=== PATIENT | female | born 1945 | race Caucasian/White ===

== ENCOUNTER → 2019-12-28 | Outpatient (CLI) | payer MEDICARE ==
[~2019-12-28] MED LIST: ASPI81CH PO; FAMO20 PO; Ferrous Sulfat325 M2 PO; GABA400 PO; HYDCHL12.5 PO; LEVSOD125 PO; LISI20 PO
[2019-12-28 20:46] LABS: Protein, Urine Quantitative <5.0 mg/dL (0.0-11.9)
== END | disposition home or self-care (01) ==
LOC: LAB 13:43 → LAB SHORT 13:43
PROVIDERS: Internal Medicine Nephrology
DX: N18.3 Chronic kidney disease, stage 3 (moderate) (principal); D63.1 Anemia in chronic kidney disease; N25.81 Secondary hyperparathyroidism of renal origin; E55.9 Vitamin D deficiency, unspecified; E78.00 Pure hypercholesterolemia, unspecified; D51.8 Other vitamin B12 deficiency anemias; D52.8 Other folate deficiency anemias; D50.9 Iron deficiency anemia, unspecified; R76.9 Abnormal immunological finding in serum, unspecified; R94.5 Abnormal results of liver function studies; R94.6 Abnormal results of thyroid function studies
CPT/HCPCS: 81050; 82043; 82570; 84156

== ENCOUNTER 2022-04-26 12:50 | Observation (INO) | payer MEDICARE ==
[~2022-04-26] VITALS: Ht 157.5 cm; Wt 64.0 kg
[~2022-04-26 12:50] MED LIST changes: +LEVSOD100 PO; -LEVSOD125 PO
[2022-04-26 15:27] LABS: BASOPHILS ABSOLUTE AUTO 0.02 K/mm3 (0.00-0.23); BASOPHILS PERCENT AUTO 1 % (0-2); EOSINOPHILS PERCENT AUTO 0 % (0-6); Hematocrit 29.2 % (33.0-51.0); Hemoglobin 9.3 g/dL (11.5-16.0); IMMATURE GRAN ABSOLUTE AUTO 0.02 K/mm3 (0.00-0.10); IMMATURE GRAN PERCENT AUTO 1 % (0-1); LYMPHOCYTES ABSOLUTE AUTO 0.89 K/mm3 (0.84-5.20); LYMPHOCYTES PERCENT AUTO 21 % (21-46); MONOCYTES ABSOLUTE AUTO 0.55 K/mm3 (0.16-1.47); MONOCYTES PERCENT AUTO 13 % (4-13); Mean Corpuscular HGB 31.3 pg (26.0-34.0); Mean Corpuscular HGB Conc 31.8 g/dL (31.5-36.5); Mean Corpuscular Volume 98 fL (80-100); Mean Platelet Volume 10.6 fL (9.1-12.4); NEUTROPHILS ABSOLUTE AUTO 2.86 K/mm3 (1.96-9.15); NEUTROPHILS PERCENT AUTO 66 % (41-73); Platelet Count 257 K/mm3 (150-400); RDW Coefficient Variation 15.2 % (11.7-14.2); RDW Standard Deviation 54.6 fL (35.1-46.3); Red Blood Cell Count 2.97 M/mm3 (3.80-5.20); White Blood Cell Count 4.34 K/mm3 (4.00-11.30)
[2022-04-26 16:02] LABS: Albumin, Blood 3.6 g/dL (3.4-5.0); Albumin/Globulin Ratio 1.1 (0.8-1.8); Bilirubin, Total 0.2 mg/dL (0.1-1.0); Bun/Creatinine Ratio 15.6 (12.0-20.0); Calcium, Blood 9.1 mg/dL (8.5-10.1); Creatinine, Blood 1.09 mg/dL (0.40-1.00); Globulin, Blood 3.3 g/dL (2.2-4.0); Potassium, Blood 4.5 mmol/L (3.5-5.5); Total Protein, Blood 6.9 g/dL (6.4-8.2)
[2022-04-27 04:37] LABS: BASOPHILS ABSOLUTE AUTO 0.01 K/mm3 (0.00-0.23); BASOPHILS PERCENT AUTO 0 % (0-2); EOSINOPHILS PERCENT AUTO 0 % (0-6); Hematocrit 28.8 % (33.0-51.0); Hemoglobin 9.3 g/dL (11.5-16.0); IMMATURE GRAN ABSOLUTE AUTO 0.02 K/mm3 (0.00-0.10); IMMATURE GRAN PERCENT AUTO 1 % (0-1); LYMPHOCYTES ABSOLUTE AUTO 0.99 K/mm3 (0.84-5.20); LYMPHOCYTES PERCENT AUTO 25 % (21-46); MONOCYTES ABSOLUTE AUTO 0.44 K/mm3 (0.16-1.47); MONOCYTES PERCENT AUTO 11 % (4-13); Mean Corpuscular HGB Conc 32.3 g/dL (31.5-36.5); Mean Corpuscular Volume 96 fL (80-100); Mean Platelet Volume 10.2 fL (9.1-12.4); NEUTROPHILS ABSOLUTE AUTO 2.45 K/mm3 (1.96-9.15); NEUTROPHILS PERCENT AUTO 63 % (41-73); Platelet Count 243 K/mm3 (150-400); RDW Coefficient Variation 15.1 % (11.7-14.2); RDW Standard Deviation 52.6 fL (35.1-46.3); White Blood Cell Count 3.91 K/mm3 (4.00-11.30)
[2022-04-27 04:55] LABS: Bun/Creatinine Ratio 15.2 (12.0-20.0); Calcium, Blood 8.7 mg/dL (8.5-10.1); Creatinine, Blood 1.05 mg/dL (0.40-1.00); Potassium, Blood 4.1 mmol/L (3.5-5.5)
--- NOTE | 2022-04-27 07:48 | NUR ---
NUCLEAR PHYSICIAN SUMMARY NEW ADMIT FROM THE ED. PT ADMITTED FOR CP. REPORTS SOME OFF/ON CP THAT HAS BEEN THE SAME FOR THE LAST 5-6 DAYS, REPORTS PAIN A DULL ACHE. DENIES SHARP CP THAT RADIATES. NSR ON TELE. PT HAS BEEN NPO SINCE MIDNIGHT IN PREP FOR STRESS TEST LATER TODAY. VSS, WILL CONTINUE TO MONITOR.
[2022-04-27] MEDS ORDERED: Amlodipine Bes2.5 MG PO (15:24)
--- NOTE | 2022-04-27 17:35 | NUR ---
DISCHARGE SUMMARY DISCUSSED DISCHARGE INSTRUCTIONS WITH THE PT INCLUDING HOME MEDICATION CHANGES, FOLLOW UP REFERRAL WITH ONCOLOGY, FOLLOW UP WITH PRIMARY CARE. CONTACT INFORMATION GIVEN FOR ONCOLOGY REFERRAL. PT HAD NO QUESTIONS AT TIME OF DISCHARGE. IV ACCESS REMOVED. REFUSED WC RIDE OUT TO HER PRIVATE AUTO TO GO HOME.
== END 2022-04-27 17:59 | disposition home or self-care (01) ==
LOC: ER 12:50 → ERHOLD 12:51 → SURS 20:24
PROVIDERS: Emergency Medicine; ADMIT Internal Medicine
DX: R07.89 Other chest pain (principal); R91.8 Other nonspecific abnormal finding of lung field; I10 Essential (primary) hypertension; E03.9 Hypothyroidism, unspecified; E78.5 Hyperlipidemia, unspecified; D50.9 Iron deficiency anemia, unspecified; Z88.2 Allergy status to sulfonamides; Z88.8 Allergy status to other drugs, medicaments and biological substances; Z79.890 Hormone replacement therapy; Z79.82 Long term (current) use of aspirin; Z79.899 Other long term (current) drug therapy; Z87.891 Personal history of nicotine dependence; R79.89 Other specified abnormal findings of blood chemistry
CPT/HCPCS: 36415; 71046; 71260; 78452; 80048; 80053; 84484; 85025; 93005; 93010; 93017; 99285-25; A9270; A9500; G0378; J0280; J2785; Q9967

== ENCOUNTER → 2023-01-24 | Outpatient (CLI) | payer MEDICARE ==
[~2023-01-24] MED LIST changes: +Amlodipine Bes2.5 MG PO
[2023-01-25 05:53] LABS: Campylobacter Sp Not Detected (NOT DETECT)
[2023-01-25 05:54] LABS: Adenovirus F 40/41 Not Detected (NOT DETECT); Astrovirus Not Detected (NOT DETECT); Cryptosporidium Not Detected (NOT DETECT); Cyclospora Cayetanensis Not Detected (NOT DETECT); E. Coli O157 Not Detected (NOT DETECT); Entamoeba Histolytica Not Detected (NOT DETECT); Enteroaggregative E. coli-EAEC Not Detected (NOT DETECT); Enteropathogenic E. coli-EPEC Not Detected (NOT DETECT); Enterotoxigenic E. coli-ETEC Not Detected (NOT DETECT); Giardia Lamblia Not Detected (NOT DETECT); Norovirus GI/GII Not Detected (NOT DETECT); Plesiomonas Shigelloides Not Detected (NOT DETECT); Rotavirus A Not Detected (NOT DETECT); Salmonella Sp Not Detected (NOT DETECT); Sapovirus Not Detected (NOT DETECT); Shiga Toxin-prod E. coli-STEC Not Detected (NOT DETECT); Shigella/Enteroin E. coli-EIEC Not Detected (NOT DETECT); Vibrio Cholerae Not Detected (NOT DETECT); Vibrio Sp Not Detected (NOT DETECT); Yersinia Enterocolitica Not Detected (NOT DETECT)
== END | disposition home or self-care (01) ==
LOC: LAB SHORT 09:30 → LAB 09:30
PROVIDERS: Family Medicine
DX: K52.9 Noninfective gastroenteritis and colitis, unspecified (principal)
CPT/HCPCS: 87324; 87507

== ENCOUNTER → 2023-01-26 | Outpatient (CLI) | payer MEDICARE ==
[2023-01-26 15:21] LABS: Hematocrit 26.4 % (33.0-51.0); Hemoglobin 8.2 g/dL (11.5-16.0); Mean Corpuscular HGB 29.9 pg (26.0-34.0); Mean Corpuscular HGB Conc 31.1 g/dL (31.5-36.5); Mean Corpuscular Volume 96 fL (80-100); Mean Platelet Volume 10.8 fL (9.1-12.4); Platelet Count 314 K/mm3 (150-400); Red Blood Cell Count 2.74 M/mm3 (3.80-5.20); White Blood Cell Count 3.68 K/mm3 (4.00-11.30)
[2023-01-26 15:33] LABS: Albumin, Blood 3.2 g/dL (3.4-5.0); Albumin/Globulin Ratio 0.8 (0.8-1.8); Bilirubin, Total 0.2 mg/dL (0.1-1.0); Bun/Creatinine Ratio 13.1 (12.0-20.0); Calcium, Blood 8.8 mg/dL (8.5-10.1); Creatinine, Blood 0.92 mg/dL (0.40-1.00); Potassium, Blood 3.8 mmol/L (3.5-5.5); Total Protein, Blood 7.2 g/dL (6.4-8.2)
[2023-01-26 15:41] LABS: BASOPHILS PERCENT MAN 0 % (0-2); EOSINOPHILS PERCENT MAN 0 % (0-6); LYMPHOCYTES % ATYPICAL MANUAL 4 % (0-0); LYMPHOCYTES ABSOLUTE MAN 1.14 K/mm3 (0.84-5.20); LYMPHOCYTES PERCENT MAN 27 % (21-46); MONOCYTES ABSOLUTE MAN 0.14 K/mm3 (0.16-1.47); MONOCYTES PERCENT MAN 4 % (4-13); NEUTROPHILS ABSOLUTE MAN 2.39 K/mm3 (1.96-9.15); SEG NEUTROPHILS PERCENT MAN 65 % (41-73); TOTAL CELLS COUNTED 100
== END | disposition home or self-care (01) ==
LOC: LAB 13:47 → LAB SHORT 13:47
PROVIDERS: Physician Assistant
DX: R53.83 Other fatigue (principal)
CPT/HCPCS: 80053; 85025

== ENCOUNTER → 2023-08-19 | Outpatient (CLI) | payer OTHER ==
[~2023-08-19] MED LIST changes: +AMLODIPINE BES2.5 MG PO; +EUTHYROX100 MC1 PO; +NEURONTIN40010 PO
[2023-08-19 17:36] LABS: BASOPHILS ABSOLUTE AUTO 0.03 K/mm3 (0.00-0.23); BASOPHILS PERCENT AUTO 1 % (0-2); EOSINOPHILS PERCENT AUTO 0 % (0-6); Hemoglobin 8.1 g/dL (11.5-16.0); IMMATURE GRAN ABSOLUTE AUTO 0.03 K/mm3 (0.00-0.10); IMMATURE GRAN PERCENT AUTO 1 % (0-1); LYMPHOCYTES ABSOLUTE AUTO 0.52 K/mm3 (0.84-5.20); LYMPHOCYTES PERCENT AUTO 9 % (21-46); MONOCYTES ABSOLUTE AUTO 0.63 K/mm3 (0.16-1.47); MONOCYTES PERCENT AUTO 11 % (4-13); Mean Corpuscular Volume 100 fL (80-100); Mean Platelet Volume 11.4 fL (9.1-12.4); NEUTROPHILS PERCENT AUTO 78 % (41-73); Platelet Count 258 K/mm3 (150-400); RDW Coefficient Variation 15.4 % (11.7-14.2); RDW Standard Deviation 54.8 fL (35.1-46.3); White Blood Cell Count 5.51 K/mm3 (4.00-11.30)
[2023-08-19 17:49] LABS: Bun/Creatinine Ratio 23.7 (12.0-20.0); Calcium, Blood 9.2 mg/dL (8.5-10.1); Creatinine, Blood 0.97 mg/dL (0.40-1.00); Potassium, Blood 4.3 mmol/L (3.5-5.5)
== END | disposition home or self-care (01) ==
LOC: LAB SHORT 13:48 → LAB 13:48
PROVIDERS: Family Medicine
DX: D64.9 Anemia, unspecified (principal); R07.89 Other chest pain
CPT/HCPCS: 80048; 84484; 85025

== ENCOUNTER 2023-08-25 13:02 | Emergency (ER) | payer OTHER ==
[~2023-08-25] VITALS: Ht 152.4 cm; Wt 65.8 kg
[~2023-08-25 13:02] MED LIST changes: -AMLODIPINE BES2.5 MG PO; -EUTHYROX100 MC1 PO; -NEURONTIN40010 PO
[2023-08-25] MEDS ORDERED: Ondansetron HCl 2 MG / ML 2ML Vial IV ONE ×2 (14:30→15:35)
[2023-08-25] MEDS ORDERED: Morphine Sulfate 4 MG/1 ML Injection IV ONE (14:30)
[2023-08-25] MEDS ORDERED: AMLODIPINE BES2.5 MG PO (14:46)
[2023-08-25] MEDS ORDERED: NEURONTIN40010 PO (14:46)
[2023-08-25] MEDS ORDERED: EUTHYROX100 MC1 PO (14:46)
[2023-08-25 15:26] LABS: BASOPHILS ABSOLUTE AUTO 0.02 K/mm3 (0.00-0.23); BASOPHILS PERCENT AUTO 0 % (0-2); EOSINOPHILS PERCENT AUTO 0 % (0-6); Hematocrit 28.3 % (33.0-51.0); Hemoglobin 8.4 g/dL (11.5-16.0); IMMATURE GRAN ABSOLUTE AUTO 0.03 K/mm3 (0.00-0.10); IMMATURE GRAN PERCENT AUTO 1 % (0-1); LYMPHOCYTES ABSOLUTE AUTO 0.79 K/mm3 (0.84-5.20); LYMPHOCYTES PERCENT AUTO 15 % (21-46); MONOCYTES ABSOLUTE AUTO 0.76 K/mm3 (0.16-1.47); MONOCYTES PERCENT AUTO 15 % (4-13); Mean Corpuscular HGB 29.9 pg (26.0-34.0); Mean Corpuscular HGB Conc 29.7 g/dL (31.5-36.5); Mean Corpuscular Volume 101 fL (80-100); Mean Platelet Volume 10.6 fL (9.1-12.4); NEUTROPHILS ABSOLUTE AUTO 3.63 K/mm3 (1.96-9.15); NEUTROPHILS PERCENT AUTO 69 % (41-73); Platelet Count 293 K/mm3 (150-400); RDW Coefficient Variation 14.6 % (11.7-14.2); Red Blood Cell Count 2.81 M/mm3 (3.80-5.20); White Blood Cell Count 5.23 K/mm3 (4.00-11.30)
[2023-08-25] MEDS ORDERED: HYDROmorphone HCl/Pf 1MG SYR IV ONE (15:30)
[2023-08-25 15:37] LABS: Albumin, Blood 3.3 g/dL (3.4-5.0); Albumin/Globulin Ratio 0.8 (0.8-1.8); Bilirubin, Total 0.3 mg/dL (0.1-1.0); Calcium, Blood 8.9 mg/dL (8.5-10.1); Globulin, Blood 4.1 g/dL (2.2-4.0); Potassium, Blood 4.5 mmol/L (3.5-5.5); Total Protein, Blood 7.4 g/dL (6.4-8.2)
[2023-08-25 18:51] VITALS: BP 155/55
== END 2023-08-25 18:52 | disposition home or self-care (01) ==
LOC: ER 13:02
PROVIDERS: Nurse Practitioner
DX: M54.2 Cervicalgia (principal); M25.512 Pain in left shoulder; Z88.2 Allergy status to sulfonamides; Z88.8 Allergy status to other drugs, medicaments and biological substances; Z79.899 Other long term (current) drug therapy; I10 Essential (primary) hypertension; E03.9 Hypothyroidism, unspecified; G47.00 Insomnia, unspecified; Z87.891 Personal history of nicotine dependence
CPT/HCPCS: 71046; 71260; 80053; 84484; 85025; 93005; 93010; 96374-59; 96375-59; 99284-25; J2270; J2405; Q9967

== ENCOUNTER 2023-10-13 12:27 | Inpatient (IN) | payer OTHER ==
[~2023-10-13] VITALS: Ht 154.9 cm; Wt 64.9 kg
[~2023-10-13 12:27] MED LIST changes: +AMLODIPINE BES2.5 MG PO; +EUTHYROX100 MC1 PO; +HYDROCODONE-AC1 EA19 PO; +KETOROLAC TROMET3 ML OP; +NEURONTIN40010 PO; +PEPCID40 MG PO
[2023-10-13 13:03] LABS: BASOPHILS ABSOLUTE AUTO 0.02 K/mm3 (0.00-0.23); BASOPHILS PERCENT AUTO 1 % (0-2); EOSINOPHILS ABSOLUTE AUTO 0.01 K/mm3 (0.00-0.68); EOSINOPHILS PERCENT AUTO 0 % (0-6); Hematocrit 27.7 % (33.0-51.0); Hemoglobin 8.1 g/dL (11.5-16.0); IMMATURE GRAN ABSOLUTE AUTO 0.02 K/mm3 (0.00-0.10); IMMATURE GRAN PERCENT AUTO 1 % (0-1); LYMPHOCYTES ABSOLUTE AUTO 0.57 K/mm3 (0.84-5.20); LYMPHOCYTES PERCENT AUTO 13 % (21-46); MONOCYTES ABSOLUTE AUTO 0.52 K/mm3 (0.16-1.47); MONOCYTES PERCENT AUTO 12 % (4-13); Mean Corpuscular HGB 27.5 pg (26.0-34.0); Mean Corpuscular HGB Conc 29.2 g/dL (31.5-36.5); Mean Corpuscular Volume 94 fL (80-100); Mean Platelet Volume 10.1 fL (9.1-12.4); NEUTROPHILS ABSOLUTE AUTO 3.23 K/mm3 (1.96-9.15); NEUTROPHILS PERCENT AUTO 74 % (41-73); Platelet Count 335 K/mm3 (150-400); RDW Coefficient Variation 14.7 % (11.7-14.2); Red Blood Cell Count 2.95 M/mm3 (3.80-5.20); White Blood Cell Count 4.37 K/mm3 (4.00-11.30)
[2023-10-13 13:32] LABS: Albumin, Blood 3.1 g/dL (3.4-5.0); Albumin/Globulin Ratio 0.7 (0.8-1.8); Bilirubin, Total 0.3 mg/dL (0.1-1.0); Bun/Creatinine Ratio 20.4 (12.0-20.0); Creatinine, Blood 0.74 mg/dL (0.40-1.00); Globulin, Blood 4.4 g/dL (2.2-4.0); Total Protein, Blood 7.5 g/dL (6.4-8.2)
[2023-10-13 14:38] LABS: Influenza A, PCR NEGATIVE (NEGATIVE); Influenza B, PCR NEGATIVE (NEGATIVE); Resp Syncytial Virus, PCR NEGATIVE (NEGATIVE); SARS-Cov-2 (COVID-19) PCR, MMC NEGATIVE (NEGATIVE)
[2023-10-13 15:51] LABS: International Normalized Ratio 1.1; Prothrombin Time Results 11.7 Sec (9.7-11.5)
[2023-10-13] MEDS ORDERED: Albuterol 2.5 MG/3 ML VIAL INH PRN (16:05)
[2023-10-13] MEDS ORDERED: Ondansetron HCl 2 MG / ML 2ML Vial IV PRN (16:05)
[2023-10-13] MEDS ORDERED: HYDROcodone 10-APAP 325 TAB PO PRN (16:05)
[2023-10-13] MEDS ORDERED: Ondansetron 4 MG TAB PO PRN (16:05)
[2023-10-13] MEDS ORDERED: Ketorolac Tromethamine 30mg Vial IV PRN (16:10)
[2023-10-13] MEDS ORDERED: FURO20 PO (17:26)
[2023-10-13] MEDS ORDERED: POTCHL20ER PO (17:26)
[2023-10-13] MEDS ORDERED: FEROSUL325 M1 PO (17:27)
[2023-10-13] MEDS ORDERED: FAMO40 PO (17:28)
[2023-10-13 18:03] VITALS: BP 178/70
--- NOTE | 2023-10-13 18:47 | NUR ---
ADMIT NOTE/SHIFT SUMMARY- PT ADMITTED THROUGH THE ED FOR SOB, PLURAL EFFUSION. PT HAS A SCHHEDULED THORACENTESIS. SHE STATES SHE HAS NEVER HAD A THORACENTESIS BEFORE. PT HAS A BENIGN TUMOR IN THE LEFT UPPER LOBE AND A LEFT PLURAL EFFUSION. LUNG SOUNDS ARE ABSENT ON THE LEFT. CLEAR ON THE RIGHT. PT IN BED, CALL LIGHT IN REACH, SPOUSE AT THE BEDSIDE. PT STATES "IF I HAVE CANCER I DON'T WANT TO KNOW." SHE SAYS MD PIZARRO.
[2023-10-13 19:39] VITALS: BP 169/55
[2023-10-13] MEDS ORDERED: Docusate Sodium 100 MG Cap PO SCH (21:00)
[2023-10-13] MEDS ORDERED: Gabapentin 400 MG Cap PO SCH (21:00)
[2023-10-13] MEDS ORDERED: Sennosides 8.6 MG Tab PO SCH (21:00)
[2023-10-14] VITALS (10 sets, daily range): BP systolic 126–168; BP diastolic 51–71
--- NOTE | 2023-10-14 04:49 | NUR ---
SHIFT SUMMARY: Pt is admitted for left pleural effusion and is a DNR. is alert and able to make needs known. ADLs have been independent through shift. Denies pain or discomfort when asked. Just states that she is having some shortness of breath. On 2l of O2 via NC to keep spo2 above 90%. Has been NPO starting at midnight pending a procedure in the morning. Telly reports sinus in the 70s.
[2023-10-14 05:25] LABS: BASOPHILS ABSOLUTE AUTO 0.02 K/mm3 (0.00-0.23); BASOPHILS PERCENT AUTO 1 % (0-2); EOSINOPHILS PERCENT AUTO 0 % (0-6); Hemoglobin 6.8 g/dL (11.5-16.0); IMMATURE GRAN ABSOLUTE AUTO 0.01 K/mm3 (0.00-0.10); IMMATURE GRAN PERCENT AUTO 0 % (0-1); LYMPHOCYTES ABSOLUTE AUTO 0.72 K/mm3 (0.84-5.20); LYMPHOCYTES PERCENT AUTO 21 % (21-46); MONOCYTES ABSOLUTE AUTO 0.56 K/mm3 (0.16-1.47); MONOCYTES PERCENT AUTO 17 % (4-13); Mean Corpuscular HGB 27.2 pg (26.0-34.0); Mean Corpuscular HGB Conc 29.6 g/dL (31.5-36.5); Mean Corpuscular Volume 92 fL (80-100); NEUTROPHILS ABSOLUTE AUTO 2.08 K/mm3 (1.96-9.15); NEUTROPHILS PERCENT AUTO 61 % (41-73); Platelet Count 275 K/mm3 (150-400); RDW Coefficient Variation 14.7 % (11.7-14.2); RDW Standard Deviation 49.1 fL (35.1-46.3); White Blood Cell Count 3.39 K/mm3 (4.00-11.30)
[2023-10-14 05:43] LABS: Bun/Creatinine Ratio 21.7 (12.0-20.0); Calcium, Blood 8.4 mg/dL (8.5-10.1); Creatinine, Blood 0.74 mg/dL (0.40-1.00)
[2023-10-14] MEDS ORDERED: Levothyroxine Sodium 0.1 MG Tab PO SCH (06:00)
--- NOTE | 2023-10-14 06:10 | NUR ---
spoke with Dr. Das about HGB of 6.8. he gave T.O. of 2 units pack red blood cells. he was informed that pt does not have a consent for blood products on file. he said he would be up to obtain consent. initial conversation at 0600. consent obtained at 0620.
[2023-10-14] MEDS ORDERED: NS 250 ML IV PRN (07:25)
[2023-10-14] MEDS ORDERED: AmLODIPine Besylate 5 MG Tab PO SCH (09:00)
[2023-10-14] MEDS ORDERED: Famotidine 20 MG Tab PO SCH (09:00)
[2023-10-14 09:32] LABS: Automated BF WBC Count 0.513 K/mm3 (0-999)
[2023-10-14 09:37] LABS: Body Fluid WBC Count 513 /mm3 (0-999)
[2023-10-14 09:44] LABS: Glucose, Body Fluid 91 mg/dL; Lactate Dehydrogenase, Body Fl 120 U/L; Protein, Body Fluid 4.7 g/dL
[2023-10-14 10:24] LABS: RBC Count, Body Fluid 1106 /mm3 (0-0)
[2023-10-14 10:32] LABS: Total Cell Count, Body Fluid 100
[2023-10-14 10:33] LABS: Color, Body Fluid Yellow (None-Yellow)
--- NOTE | 2023-10-14 13:57 | NUR ---
PHYSICIAN CONTACT/PATIENT EDUCATION/PT WANTING TO LEAVE PATIENT EXPRESSED THAT SHE IS TIRED OF WAITING ON THE SURGEON FOR A PLAN OF A COLONOSCOPY/ENDOSCOPY AND WOULD LIKE TO EAT NOW. DR. NJ NOTIFIED AND STATED THAT SHE CAN EAT A LOW FIBER DIET/NO SEEDS AND PLAN TO HAVE PROCEDURES TOMORROW. THIS WAS RELAYED TO THE PATIENT. PT STATES SHE WOULD RATHER HAVE THIS DONE AN OUTPT AND LEAVE AFTER HER BLOOD IS DONE TODAY. PT STATES "I CAN HAVE A SCOPE APPOINTMENT OUTSIDE THE HOSPITAL AND CAN DO THE SAME FOR THE DRAINAGE OF THE LUNG FLUID WELL." PT EDUCATED ABOUT HOW HER HBG FELL OVERNIGHT AND THAT IS WHY SHE NEEDS IS GETTING TWO BAGS OF BLOOD TODAY. PT STATES SHE WOULD BE WILLING TO STAY IF SHE HAD A DEFINETIVE PLAN FOR TOMORROW WITH THE SCOPES AND FUTURE THORACENTESIS'. THIS RN EDUCATED THAT SOMETIMES PROCEDURES ARE PUSHED BACK FOR ALL KINDS OF REASONS, SCHEDULING/EMERGENCIES, ECT. PT AND HER SEEM TO BE VERY FIXATED ON THE LACK OF PLAN FOR TOMORROW, WHICH IS MAKING THEM WANT TO LEAVE. DR. NJ NOTIFIED AND ASKED FOR THIS RN TO CALL URIEL LONDON DR. OFFICE TO SEE WHEN THE NEXT AVAILABLE OUTPT SCOPE COULD BE. EARLIEST IS October. THIS WAS RELAYED TO THE PATIENT. DR. BROWN NOTIFIED OF PATIENT CONCERNS AND STATES HE WILL REACH BACK OUT TO THE PATIENT TODAY.
--- NOTE | 2023-10-14 16:01 | NUR ---
DISCHARGE AMA PT SPOKE WITH DR. BROWN AND STILL IS UPSET BY THE "LACK OF PLAN" THERE IS FOR TOMORROW. PT EDUCATED MULTIPLE TIMES ABOUT THE REASON SHE IS NOT ON THE SCHEDULE YET AND THAT IT DOES NOT MEAN SHE WILL NOT BE ON FOR TOMORROW. PT AND HER SPOKE PRIVATELY, THEN TOLD THIS RN THAT THEY WANT TO HAVE BLOOD DRAWS AND FURTHER THORACENTESIS' DONE AN OUTPATIENT. THE PATIENT STATED IF SHE WAS "FOR SURE ON THE SCHEDULE FOR TOMORROW, THEN I WILL STAY AND ONLY IF IT IS AN UPPER ENDOSCOPY". PT INFORMED THAT THIS RN AND DR. BROWN ARE UNAWARE OF THAT AT THIS TIME. PT AND HER WANTED TO KNOW BY WHAT TIME THEY WOULD KNOW, THIS RN DID NOT HAVE AN ANSWER, SO AMA DISCHARGE WAS DECIDED AT THAT TIME. IV REMOVED & INTACT. RISKS OF LEAVING GONE OVER WITH THE PATIENT, INCULDING BLEEDING, SOB, RESPIRATORY DISTRESS, AND . PT ENCOURAGED TO CALL HER PCP AND MAKE AN APPOINTMENT AND CALL DR. ZIMMERMAN OFFICE TO SCHEDULE NEEDED SCOPES.
[2023-10-14] MEDS ORDERED: Gabapentin 400 MG Cap PO SCH (21:00)
== END 2023-10-14 15:59 | disposition left against medical advice (07) | DRG 186 ==
LOC: ER 12:27 → MEDS 16:01
PROVIDERS: Student in an Organized Health Care Education/Training Program; ADMIT Internal Medicine
PROC: 0W993ZZ Drainage of Right Pleural Cavity, Percutaneous Approach (ICD-10-PCS; principal; 2023-10-14)
PROC: 30233N1 Transfusion of Nonautologous Red Blood Cells into Peripheral Vein, Percutaneous Approach (ICD-10-PCS; 2023-10-14)
DX: J90 Pleural effusion, not elsewhere classified (principal); J96.01 Acute respiratory failure with hypoxia; K92.1 Melena; I10 Essential (primary) hypertension; D63.8 Anemia in other chronic diseases classified elsewhere; J94.2 Hemothorax; G25.81 Restless legs syndrome; G47.00 Insomnia, unspecified; E89.0 Postprocedural hypothyroidism; Z79.899 Other long term (current) drug therapy; Z79.890 Hormone replacement therapy; Z53.29 Procedure and treatment not carried out because of patient's decision for other reasons; Z88.2 Allergy status to sulfonamides; Z87.19 Personal history of other diseases of the digestive system; Z98.890 Other specified postprocedural states; Z88.8 Allergy status to other drugs, medicaments and biological substances; Z87.891 Personal history of nicotine dependence; Z98.1 Arthrodesis status
CPT/HCPCS: 0241U; 32555; 36415; 71045; 71046; 80048; 80053; 82945; 83615; 83880; 84157; 84484; 85025; 85610; 86850; 86900; 86901; 86923; 89051; 93005; 93010; 99285-25; A9270; J7050; P9016

== ENCOUNTER 2023-11-08 01:35 | Day surgery (SDC) | payer OTHER ==
[~2023-11-08 01:35] MED LIST changes: +FAMO40 PO; +FEROSUL325 M1 PO; +FURO20 PO; +POTCHL20ER PO
[2023-11-08] MEDS ORDERED: NS 250 ML IV SCH (06:55)
[2023-11-08 13:55] VITALS: BP 107/48
[2023-11-08 14:18] VITALS: BP 110/46
[2023-11-08] MEDS ORDERED: HYDROCODONE-AC1 EA19 PO (14:51)
[2023-11-08] MEDS ORDERED: MULVITA PO (14:52)
[2023-11-08] MEDS ORDERED: PROBIOTIC1 EA14 PO (14:53)
[2023-11-08] MEDS ORDERED: THERA-D2000 UNIT PO (14:53)
[2023-11-08] MEDS ORDERED: MELATONIN5 M1 PO (14:53)
[2023-11-08] MEDS ORDERED: [UNRECOGNIZED DRUG - CODE] PO (14:54)
[2023-11-08 15:19] VITALS: BP 117/47
[2023-11-08 15:55] VITALS: BP 129/59
== END 2023-11-08 16:00 | disposition home or self-care (01) ==
LOC: ATC 01:35
DX: D64.9 Anemia, unspecified (principal); Z87.891 Personal history of nicotine dependence; Z88.2 Allergy status to sulfonamides; Z79.899 Other long term (current) drug therapy
CPT/HCPCS: 36415; 36430; 86850; 86870; 86900; 86901; 86922; J7050; P9016

== ENCOUNTER 2023-11-12 07:17 | Day surgery (SDC) | payer OTHER ==
[~2023-11-12] VITALS: Ht 152.4 cm; Wt 62.4 kg
[~2023-11-12 07:17] MED LIST changes: +Balanced Salt Epinephrine Irrigation Solution 500 mL IR SCH; +Lidocaine HCl/Pf 1% 5 ML VIAL XX SCH; +MELATONIN5 M1 PO; +MULVITA PO; +Moxifloxacin HCL 0.5 MG/0.1 ML 0.4MLSYR LEFTEYE SCH; +PHENYLEPHRINE\\TROPICAMIDE\\TETRACAINE OPHTHALMIC DILATING SOLN LEFTEYE PRN; +PROBIOTIC1 EA14 PO; +Povidone-Iodine 450 DROP/30 ML Solution LEFTEYE SCH; +THERA-D2000 UNIT PO; +Triamcinolone Inj Susp 40 MG / ML 1ML Vial INJ SCH; +Triamcinolone Inj Susp 40 MG / ML 1ML Vial ONE; +[UNRECOGNIZED DRUG - CODE] PO
[2023-11-12] MEDS ORDERED: PEPCID40 MG PO (07:46)
[2023-11-12] MEDS ORDERED: NS 500 ML IV ONE (07:56)
--- NOTE | 2023-11-12 07:57 | NUR ---
11/12/23 0757 Val Manning RIGHT EYE: TETRACAINE PLACED AT 0744. PLEDGET PLACED AT 0746. PT TOLERATED WELL. CALL LIGHT WITHIN REACH.
[2023-11-12] MEDS ORDERED: FentaNYL Citrate 50 MCG/ML 2 ML Injection ONE (08:18)
[2023-11-12] MEDS ORDERED: Midazolam HCl 1MG / ML 2ML Vial ONE (08:18)
[2023-11-12 09:06] VITALS: BP 140/53
== END 2023-11-12 09:22 | disposition home or self-care (01) ==
LOC: ORSCSDS 07:17
PROVIDERS: Ophthalmology
PROC: 08RJ3JZ Replacement of Right Lens with Synthetic Substitute, Percutaneous Approach (ICD-10-PCS; principal; 2023-11-12 08:30)
DX: H25.13 Age-related nuclear cataract, bilateral (principal); H52.201 Unspecified astigmatism, right eye; I10 Essential (primary) hypertension; E03.9 Hypothyroidism, unspecified; Z85.118 Personal history of other malignant neoplasm of bronchus and lung; Z79.899 Other long term (current) drug therapy
CPT/HCPCS: J2250; J3010; J3301; V2632

== ENCOUNTER 2023-12-18 12:13 | Day surgery (SDC) | payer OTHER ==
[~2023-12-18] VITALS: Ht 152.4 cm; Wt 60.7 kg
[~2023-12-18 12:13] MED LIST changes: +Lidocaine HCl/Pf 1% 5 ML VIAL ONE; +NS 500 ML IV ONE
[2023-12-18] MEDS ORDERED: Prinivil10 MG PO (12:35)
--- NOTE | 2023-12-18 12:39 | NUR ---
12/18/23 1239 Lizette Stokes AT 1233 PLEDGET AT 1235
[2023-12-18] MEDS ORDERED: NS 500 ML IV ONE (12:55)
[2023-12-18 14:11] VITALS: BP 143/55
== END 2023-12-18 14:20 | disposition home or self-care (01) ==
LOC: ORSCSDS 12:13
PROVIDERS: Ophthalmology
PROC: 08RK3JZ Replacement of Left Lens with Synthetic Substitute, Percutaneous Approach (ICD-10-PCS; principal; 2023-12-18 13:30)
DX: H25.812 Combined forms of age-related cataract, left eye (principal); H52.202 Unspecified astigmatism, left eye; I10 Essential (primary) hypertension; E03.9 Hypothyroidism, unspecified; Z79.899 Other long term (current) drug therapy
CPT/HCPCS: J2001; J3301; J7040; V2632

== ENCOUNTER 2024-01-20 12:09 | Day surgery (SDC) | payer OTHER ==
[~2024-01-20] VITALS: Ht 154.9 cm; Wt 60.1 kg
[~2024-01-20 12:09] MED LIST changes: -Balanced Salt Epinephrine Irrigation Solution 500 mL IR SCH; +Lactated Ringer's 1,000 ML IV ONE; -Lidocaine HCl/Pf 1% 5 ML VIAL ONE; -Lidocaine HCl/Pf 1% 5 ML VIAL XX SCH; -Moxifloxacin HCL 0.5 MG/0.1 ML 0.4MLSYR LEFTEYE SCH; -NS 500 ML IV ONE; -PHENYLEPHRINE\\TROPICAMIDE\\TETRACAINE OPHTHALMIC DILATING SOLN LEFTEYE PRN; -Povidone-Iodine 450 DROP/30 ML Solution LEFTEYE SCH; +Prinivil10 MG PO; -Triamcinolone Inj Susp 40 MG / ML 1ML Vial INJ SCH; -Triamcinolone Inj Susp 40 MG / ML 1ML Vial ONE; +propofoL 50 ML IV ONE
[2024-01-20] MEDS ORDERED: AMOX500 (12:23)
[2024-01-20] MEDS ORDERED: Lactated Ringer's 1,000 ML IV ONE (12:54)
--- NOTE | 2024-01-20 13:28 | NUR ---
01/20/24 1329 JENNY VALIENTE (3) ANGIECEASIA W/ (2) APC CLIPS PLACED
[2024-01-20 14:41] VITALS: BP 124/77
== END 2024-01-20 14:15 | disposition home or self-care (01) ==
LOC: ORSCSDS 12:09
PROVIDERS: Internal Medicine Gastroenterology
PROC: 0DJD8ZZ Inspection of Lower Intestinal Tract, Via Natural or Artificial Opening Endoscopic (ICD-10-PCS; principal; 2024-01-20 13:15)
PROC: 0W3P8ZZ Control Bleeding in Gastrointestinal Tract, Via Natural or Artificial Opening Endoscopic (ICD-10-PCS; principal; 2024-01-20 13:15)
DX: D50.0 Iron deficiency anemia secondary to blood loss (chronic) (principal); K31.819 Angiodysplasia of stomach and duodenum without bleeding; K57.30 Diverticulosis of large intestine without perforation or abscess without bleeding; I12.9 Hypertensive chronic kidney disease with stage 1 through stage 4 chronic kidney disease, or unspecified chronic kidney disease; N18.30 Chronic kidney disease, stage 3 unspecified; E03.9 Hypothyroidism, unspecified; J90 Pleural effusion, not elsewhere classified; E78.5 Hyperlipidemia, unspecified; K21.9 Gastro-esophageal reflux disease without esophagitis; Z87.891 Personal history of nicotine dependence; Z79.899 Other long term (current) drug therapy
CPT/HCPCS: J2704; J7120

== ENCOUNTER 2024-07-29 00:04 | Day surgery (SDC) | payer OTHER ==
[2024-07-29] VITALS (7 sets, daily range): BP systolic 158–182; BP diastolic 55–66
[~2024-07-29 00:04] MED LIST changes: +AMOX500; -Lactated Ringer's 1,000 ML IV ONE; -propofoL 50 ML IV ONE
[2024-07-29] MEDS ORDERED: NS 250 ML IV SCH (06:55)
== END 2024-07-29 17:57 | disposition home or self-care (01) ==
LOC: ATC 00:04
DX: D50.0 Iron deficiency anemia secondary to blood loss (chronic) (principal); E03.9 Hypothyroidism, unspecified; E78.5 Hyperlipidemia, unspecified; K21.9 Gastro-esophageal reflux disease without esophagitis; I12.9 Hypertensive chronic kidney disease with stage 1 through stage 4 chronic kidney disease, or unspecified chronic kidney disease; N18.31 Chronic kidney disease, stage 3a; Z88.2 Allergy status to sulfonamides; Z88.8 Allergy status to other drugs, medicaments and biological substances; Z79.890 Hormone replacement therapy; Z79.899 Other long term (current) drug therapy; G89.29 Other chronic pain
CPT/HCPCS: 36415; 36430; 86850; 86870; 86900; 86901; 86902; 86922; J7050; P9016